=== PATIENT | male | born 1960 | race Two or more races ===

== ENCOUNTER 2018-05-30 18:18 | Emergency (ER) | payer OTHER ==
[~2018-05-30] VITALS: Ht 170.2 cm; Wt 85.7 kg
[2018-05-30] MEDS ORDERED: LEVOXYL175 MCG PO (18:50)
== END 2018-05-31 00:15 | disposition home or self-care (01) ==
LOC: ER 18:18
DX: R42 Dizziness and giddiness (principal)

== ENCOUNTER 2022-03-21 01:15 | Emergency (ER) | payer OTHER ==
[~2022-03-21] VITALS: Ht 167.6 cm; Wt 84.4 kg
[~2022-03-21 01:15] MED LIST: LEVOXYL175 MCG PO
[2022-03-21] MEDS ORDERED: OMEPRAZOLE MAGN20 MG PO (01:26)
[2022-03-21] MEDS ORDERED: KETO10TA2 PO (03:01)
[2022-03-21] MEDS ORDERED: TAMS0.4C PO (03:01)
[2022-03-21] MEDS ORDERED: CIPRO500 MG PO (03:01)
== END 2022-03-21 03:26 | disposition home or self-care (01) ==
LOC: ER 01:15
DX: N13.2 Hydronephrosis with renal and ureteral calculous obstruction (principal); K57.30 Diverticulosis of large intestine without perforation or abscess without bleeding; K76.0 Fatty (change of) liver, not elsewhere classified